=== PATIENT | male | born 1960 | race Caucasian/White ===

== ENCOUNTER 2016-11-18 14:26 | Inpatient (IN) | payer OTHER ==
--- NOTE | ~2016-11-18 | DS ---
Discharge Summary [place] [id number] [place]. [address] NAME: ASHU TOVAR JR : 62 STATUS : DIS IN PAT#: [id number] AGE: 56 ADM/REG DATE : 11/18/16 MR#: [id number] REPORT SERV DATE: 11/22/16 DICTATED BY: EFRAIN RANDHAWA DATE: 11/21/16 REPORT STATUS : Draft TRANSCRIBED BY: MODL DATE: 11/21/16 ADMISSION DATE: 11/18/2016 DISCHARGE DATE: 11/21/2016 PAIN SPECIALIST: Dr. Moran. Psychiatric followup with [facility]. FINAL DIAGNOSES: 1. Right lower lobe pneumonia, possible aspiration. 2. Chronic hypoxic respiratory failure. 3. Chronic obstructive pulmonary disease. 4. Coronary artery disease with history of myocardial infarction. 5. Hypertension. 6. Diabetes. 7. Chronic pain. 8. Polysubstance abuse. 9. Paranoid schizophrenia. 10.History of hepatitis C. 11.Tobacco abuse. 12.Status post hyponatremia. DIAGNOSTIC EXAM: Echocardiogram showing technically difficult study due to limited acoustic windows. Normal left ventricular size with low normal systolic function, EF of 50%. Mild anteroseptal hypokinesis. Mild diastolic dysfunction. Normal RV size and systolic function. Normal left atrial size. No obvious mobile echodensities and visualized cardiac valve. CAT scan of the chest and abdomen without contrast showing consolidation within the posterior right lower lobe likely representing pneumonia. Additional dependent atelectatic changes are seen in both lungs. Moderate upper lobe predominant emphysematous changes, progress since 03/17/2012, increased number of subcentimeter mediastinal and hilar lymph nodes likely reactive. Moderate coronary artery calcifications. No definite acute abnormality appreciated with the abdomen or pelvis. Nonobstructing bilateral nephrolithiasis. Minimally prominent prostate. CAT scan of the brain showing prominence of sulci over the frontal and temporal region, question significance; small amount of nonspecific deep white matter lucency in the left frontal region; nonspecific. HOSPITAL COURSE: Please refer to the H and P done by Dr. Snyder dated on 11/18/2016. Briefly, this is a 56-year-old male who comes in for fever and lethargy. The patient has a history of COPD on 2 L of oxygen all the time, CAD, diabetes, yet continues to smoke. He is on several pain medications and possibly on using other substances as well. The patient was having some vomiting two to three days prior to admission, diaphoretic, and Phenergan was not helping. It was also noted that the patient was recently started on Lyrica. EMS was then called and found the patient obtunded, which Narcan did not help. The patient then was brought to the emergency room and was found to have an elevated white count, lactate, and the patient was possibly diagnosed with sepsis and sent to the IMCU. Further workup revealed that the patient has KAYLYNN with a creatinine of 3.87. Imaging shows a right lower Discharge Summary [facility] [address] [place]. [address] NAME: ASHU TOVAR JR : 62 STATUS : DIS IN PAT#: [id number] AGE: 56 ADM/REG DATE : 11/18/16 MR#: [id number] REPORT SERV DATE: 11/22/16 DICTATED BY: EFRAIN RANDHAWA DATE: 11/21/16 REPORT STATUS : Draft TRANSCRIBED BY: GERONIMO DATE: 11/21/16 lobe pneumonia, and the patient was started on fluids and antibiotics. Nephro was consulted and they followed up with the labs and the patient improved. On discharge, creatinine 0.79. The patient's mental status also improved and was transferred out on the floor, and the patient was saturating at 95% on 2 L, which is his baseline. Meanwhile, the white count also improved from as high as 20.5 to 8.9. He was also found to have positive for benzo, amphetamines, cannabinoids, and opiates in his urine. We are not sure whether the patient started with a pneumonia and caused him to be obtunded with this or if the patient was on several medications that cause him to be obtunded causing him to have some nausea and vomiting and have a pneumonia afterwards, in which case, the patient was told not to continue the Lyrica, follow up with a pain specialist, and not to take any other substance not prescribed to him. He was also told not to smoke with his background of COPD and his use of oxygen. The patient remains afebrile with stable vital signs. He expresses wishes to go home, so we will be discharging him with the above diagnosis. He will be on Augmentin 875 mg twice a day for one more week and continue his home medications of atenolol 50 mg a day, Pepcid 40 mg at bedtime, Prozac 40 mg a day, Dilaudid 4 mg four times a day, Opana ER 20 mg twice a day, Levemir 15 units at bedtime, Prilosec 40 mg a day, Pravachol 20 mg at bedtime, Risperdal 3 mg a day, Spiriva one capsule inhaled a day, Thorazine 300 mg at bedtime, metformin 1000 mg twice a day. He will be off the Amaryl and Lyrica, Voltaren gel as needed, and Onglyza 5 mg a day. The patient will follow up with his PCP, Germania Roamn, in one week. Follow up with his pain specialist in [facility] as previously scheduled. This has been explained to the patient in front of the nurses. TIME SPENT: 40 minutes. FELI/GERONIMO Efrain Randhawa M.D. / [id number] CC: Kathy Colby M.D.
--- NOTE | ~2016-11-18 | HP ---
History And Physical [place] [id number] [facility] [place]. [address] NAME: ASHU TOVAR JR : 62 STATUS : ADM IN PAT#: [id number] AGE: 56 ADM/REG DATE : 11/18/16 MR#: [id number] REPORT SERV DATE: 11/18/16 DICTATED BY: EFRAIN SNYDER DATE: 11/18/16 REPORT STATUS : Draft TRANSCRIBED BY: MODL DATE: 11/18/16 DATE OF ADMISSION: 11/18/2016 IDENTIFYING DATA: A 56-year-old white male whose PCP is Dr. Germania Roman. Mental health care is through [facility], and he goes to some painter hand. CHIEF COMPLAINT: Fever, chills, and lethargy. HISTORY OF PRESENT ILLNESS: This history of present illness is obtained by discussion with the patient. I also was able to reach his by phone at [phone]. Also spoke with the ER physician, Dr. Malu Roca. I reviewed Stayzilla and Miso, spoke with the ER nurse, and reviewed his ER chart. The patient was hospitalized here 07/30/2016 through 08/06/2016 with COPD and community- acquired pneumonia. He was back the next day after falls and a fracture of the MTP. His by phone tells me that over the last two to three days he has been very diaphoretic, weak in the legs, throwing up almost constantly day and night. She gave him some Phenergan but that did not seem to help. She was not sure but she thought there might have been some red color in some of the emesis and possibly some black color in some of the emesis. She also thinks he may have had some dark stool. She was very eager to help, but on the phone, it was difficult to understand much of what she said, so I had to have her repeat a lot of it. She states she tried again to come to the emergency room, but he refused to come initially. Then, last night he was harder and harder to awaken. Finally, today, she just had him come to the emergency room. The paramedics told the ER staff that he was obtunded. They reportedly gave him Narcan and albuterol, but it did not seem to awaken him at all. The ER felt he had sepsis and asked us to admit him to the hospital. REVIEW OF SYSTEMS: Per the , he has had fever, but they did not check the temperature. She said he was very diaphoretic. He had some diarrhea last week. She states that he has a slow urinary stream, apparently had some falls yesterday. She states his weight has gone down from somewhere in the 200s to 165 pounds, but it is not clear over what time. He denies any dysuria, chest pain, or abdominal pain, and the rest of the questions I asked in my review of systems, he essentially did not give me any answer to. ALLERGIES: HE CLAIMS ALLERGIES TO TORADOL, IMITREX, AND CODEINE. PAST MEDICAL HISTORY: He has no history of stroke or chronic kidney disease. He does have a history of diabetes mellitus type 2. He also has COPD on oxygen at home and Spiriva. He has hypertension. He has had some type of hepatitis in the past. Previous notes indicate hepatitis C. The thinks it was hepatitis C. He has never had any treatment for it. He has also had peptic ulcer disease and reflux in the past. He has had problems with kidney stones and hematuria, was evaluated by Dr. Alcantara of Urology for that on 07/31/2016, and he was going to follow him up as an outpatient. He has chronic pain with History And Physical [address] [address] NAME: ASHU TOVAR : 62 STATUS : ADM IN [facility]#: [id number] AGE: 56 ADM/REG DATE : 11/18/16 MR#: [id number] REPORT SERV DATE: 11/18/16 DICTATED BY: EFRAIN SNYDER DATE: 11/18/16 REPORT STATUS : Draft TRANSCRIBED BY: MODPo DATE: 11/18/16 migraines, neck, and back pain, and he goes to Pain Management and is on Opana and Dilaudid. 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 His states he had a PTCA. She does not know any details. He has been out of custodial for about a year and a half, almost two years. She states he spent about total 23 years in custodial in the past. He has had chronic paranoid schizophrenia. HOME MEDICATIONS: Tenormin 50 mg daily, Thorazine 300 mg at bedtime, Voltaren 1% gel topical p.r.n., Pepcid 40 mg at bedtime, Prozac 40 mg daily, Amaryl 4 mg twice a day, Dilaudid 4 mg q.i.d. p.r.n. pain, Levemir 15 units at bedtime, metformin 1000 mg b.i.d., Prilosec 40 mg daily, Opana extended release 20 mg twice a day, Pravachol 20 mg at bedtime, Lyrica 150 mg daily that was supposedly just started on 11/15/2016, Risperdal 3 mg daily, Onglyza 5 mg daily, and Spiriva HandiHaler one dose inhaled daily. SURGERIES: All that the knows of is cataract surgery, but I did find where he had an ESWL, done by Dr. Lopez 01/14/2016. I did find a heart catheterization by Dr. Chow on 01/09/2012 showing normal coronary arteries, mild focal wall motion abnormality with an ejection fraction of 50%. Also found on echocardiogram 01/10/2012 with left atrial size of 2.3 cm, and left ventricular ejection fraction of 45-50%. SOCIAL HISTORY: He still smokes two packs of cigarettes per day. He used to drink six pack of beer per week. The states he does not drink any longer. He is . As described above, he spent a total of about 23 years in custodial, has been out this most recent time, almost two years according the . FAMILY HISTORY: Mother had a heart attack and pneumonia. Dad reportedly had lung cancer and treated with chemo and radiation. Dad later of a stroke reportedly. DIAGNOSTIC DATA: Chest x-ray done as a single portable film today reveals some increased interstitial marking in the bases, left and right, heart size normal. No bony abnormalities that I can appreciate at this time. CT scan of the brain, interpreted by teleradiography, is showing no acute abnormalities. EKG done today at 1502 hours interpreted by me at this time reveals normal sinus rhythm and a left bundle branch block, and it looks basically the same as 08/12/2016 per my interpretation. Arterial blood gas done on 28% oxygen: PH 7.31, pCO2 of 42, PO2 of 82, bicarbonate 20.9. Sodium 134, potassium 4.2, chloride 96, CO2 is 25, BUN 37, creatinine 3.87, and by comparison, his creatinine was 0.78 on 11/05/2016. His glucose is 135. His calcium is 9.6. His albumin is 3.3, globulin 4.7. The rest of the CMP at this time is normal. His B-natriuretic peptide is 21.1. His procalcitonin is 0.37. Lactic acid is 6.5, and it was drawn at 1440 hours today. His white count is 20.5, hemoglobin is 13.7, MCV is microcytic at 73.1, and platelets 359,000. His protime is 12.8, INR 1.0, PTT is 33.7. Urinalysis today that is obtained from a catheterized specimen is cloudy. Glucose and protein are both greater than 500, large amount of blood, greater than 182 red cells, 11 white blood cells. PHYSICAL EXAMINATION: VITAL SIGNS: Temperature 98, pulse 80, respirations 20, blood pressure 120/70, and O2 saturation is currently 94% on 3 liters. History And Physical [address] [address] NAME: ASHU TOVAR JR : 62 STATUS : ADM IN [facility]#: [id number] AGE: 56 ADM/REG DATE : 11/18/16 MR#: [id number] REPORT SERV DATE: 11/18/16 DICTATED BY: EFRAIN SNYDER DATE: 11/18/16 REPORT STATUS : Draft TRANSCRIBED BY: GERONIMO DATE: 11/18/16 GENERAL: A well-developed male who appears lethargic, but in no acute distress. HEENT: Head is atraumatic. Pupils are equal, round, and reactive to light. Extraocular motions are intact. No scleral icterus noted. Ear canals and TMs unremarkable. No inflammatory changes noted on the ears externally. Hearing is grossly normal bilaterally. Nose noninflamed externally. Septum midline. Nares patent. Mouth is dry, good gag. No redness of the throat, gums, or lips. NECK: Supple. No lymph node or thyroid enlargement. The carotids have good pulses. No bruits. Jugular veins are not distended. LUNGS: Crackles in the left lung base. Clear otherwise. Normal respiratory effort. HEART: Regular rate and rhythm without murmur, gallop, click, or rub. ABDOMEN: Bowel sounds positive. Soft, nondistended, nontender. No masses. No organomegaly. EXTREMITIES: Warm, good pulses. No clubbing, no cyanosis, no edema. No actively inflamed skin or joints. NEUROLOGIC: He is lethargic. He awakens to tactile and verbal stimulation. He is able to tell me his name. He states he is at a hospital. He follows simple commands. His motor strength appears to be 2/5 in all four extremities. No Babinski or clonus noted. Cranial nerves 2 through 12 grossly normal. He has a Haddad catheter in place, placed by the ER staff. ASSESSMENT: 1. Acute kidney injury. This is probably due to volume depletion for several days of vomiting, but also, I suspect he has sepsis that may be aggravating this. 2. Sepsis with a high white blood count, high lactate lethargy, and acute kidney injury. I suspect this may be due to aspiration pneumonitis. 3. Several days of nausea and vomiting with reported diarrhea, could be a gastroenteritis. 4. Possible gastrointestinal bleed because the stated she thought there was some red or black color in some of his emesis and some of his stools. Currently, his hemoglobin is higher than when he left here on 08/07/2016, but he is volume depleted as well. 5. Metabolic acidosis with concomitant respiratory acidosis. 6. Severe proteinuria. 7. History of congestive heart failure per his . 8. Microcytic indices. 9. Report of COPD, on home oxygen 2 L. 10.Diabetes mellitus type 2. 11.History of hypertension. 12.History of hepatitis C, untreated for years. 13.History of previous heart attack 10 years ago in custodial, treated with PTCA. 14.Chronic paranoid schizophrenia. 15.History of kidney stones. 16.Chronic pain, on Dilaudid and Opana. PLAN: 1. Admit to the [facility]. 2. We will get a renal ultrasound or actually may just go and get a CT scan of abdomen and pelvis. We are going to give him lactated Ringer's intravenously. I am going to hold his Levemir and metformin. We are going to hold his Lyrica and continue with Zosyn History And Physical [address] [place]. [address] NAME: ASHU TOVAR JR : 62 STATUS : ADM IN PAT#: [id number] AGE: 56 ADM/REG DATE : 11/18/16 MR#: [id number] REPORT SERV DATE: 11/18/16 DICTATED BY: EFRAIN SNYDER DATE: 11/18/16 REPORT STATUS : Draft TRANSCRIBED BY: GERONIMO DATE: 11/18/16 that was already started in the emergency room. We will check HIV and hepatitis C and hepatitis B. We will check for urine protein-creatinine ratio. We will check an echocardiogram. His had been updated by phone at this time. RSG/GERONIMO Efrain Snyder M.D. / [id number] CC: Kathy Vega M.D.
--- NOTE | ~2016-11-18 | CN ---
Consultation Report [facility] [address] [place]. [address] NAME: ASHU TOVAR JR : 62 STATUS : ADM IN [facility]#: [id number] AGE: 56 ADM/REG DATE : 11/18/16 MR#: [id number] REPORT SERV DATE: 11/19/16 DICTATED BY: FRANCESCA PETERSON DATE: 11/19/16 REPORT STATUS : Draft TRANSCRIBED BY: MODPo DATE: 11/19/16 NEPHROLOGY CONSULTATION DATE OF CONSULTATION: 11/19/2016 INDICATION FOR CONSULTATION: Acute kidney injury. HISTORY OF PRESENT ILLNESS: The patient is a 56-year-old male who is seen for acute kidney injury and acidosis following admission for lethargy, fever, and chills. He apparently was at home and was unresponsive and EMS was called. His creatinine was 0.78 on 11/05/2016, rising to 3.87 on 11/18/2016 and has fallen to 3.14 on 11/19/2016. Home medications included metformin and topical Voltaren. He did relate protracted nausea and vomiting. His reported some bowel movements were dark in color and the patient reported hematemesis. He denied any dizziness prior to admission. PAST MEDICAL HISTORY: Paranoid schizophrenia; chronic pain syndrome with polysubstance abuse; gastroesophageal reflux disease; peptic ulcer disease; history of CHF; hypertension; diabetes; nephrolithiasis; COPD, on home O2; coronary artery disease with remote PCI; remote MT; and hepatitis C. SOCIAL HISTORY: The patient is . He is disabled. He is followed through [facility] and goes to a dial painter. He has a 35-year- pack smoking history and smokes one pack of cigarettes per day, history of beer consumption as well and drug screen is positive on this admission for amphetamines, benzodiazepines, cannabis and opiates. He is and has two sons, aged 24 and 20. ALLERGIES: TORADOL, IMITREX, AND CODEINE. HOME MEDICATIONS: Thorazine, Tenormin, Voltaren gel, Pepcid, Prozac, Amaryl, Dilaudid, Levemir, insulin, metformin, Prilosec, Opana, Pravachol, Lyrica, Risperdal, Onglyza, and Spiriva HandiHaler. PAST SURGICAL HISTORY: Cataract surgery, lithotripsy for nephrolithiasis, and cardiac cath. FAMILY HISTORY: Mother had heart attack and pneumonia. Dad had lung cancer, treated with chemotherapy and radiation, and apparently of stroke. No history of end-stage renal disease. REVIEW OF SYSTEMS: HEENT: No change in visual acuity. No epistaxis. No otic infection. No pharyngitis. PULMONARY: Notes cough. No hemoptysis. No purulent sputum. CARDIAC: Denies chest pain. No lower extremity edema. No syncope. GI: Protracted nausea and vomiting. He denies recent diarrhea. reported dark stool. He reports hematemesis. Consultation Report [place] [id number] [place]. [address] NAME: ASHU TOVAR JR : 62 STATUS : ADM IN [facility]#: [id number] AGE: 56 ADM/REG DATE : 11/18/16 MR#: [id number] REPORT SERV DATE: 11/19/16 DICTATED BY: FRANCESCA PETERSON DATE: 11/19/16 REPORT STATUS : Draft TRANSCRIBED BY: GERONIMO DATE: 11/19/16 : No gross hematuria, dysuria, or pyuria. MUSCULOSKELETAL: Chronic back pain. INTEGUMENT: No rash. No skin lesions. NEUROLOGIC: No lateralizing weakness. No seizure activity. The remainder of the 12-point review of systems is negative. PHYSICAL EXAMINATION: GENERAL: White male, pleasant, alert. VITAL SIGNS: Blood pressure lowest was 88/55, currently blood pressure is 123/72, temp is 98.1 with T-max of 99.2, respiratory rate is 14, and pulse 66. HEENT: Eyes, no scleral icterus. Pupils are equal and reactive to light. Extraocular movement intact. Nares patent. No lesions. Mouth, mucous membranes moist. No throat injection. NECK: No thyromegaly, masses, bruits. CHEST/LUNGS: Bilateral crackles. No wheezes/rhonchi. No dullness. CARDIAC: Regular rate and rhythm. No murmur, gallop, or rub. ABDOMEN: Supple. Normoactive bowel sounds. Nontender. No masses. No hepatosplenomegaly. No bruits. /RECTAL: Not performed. EXTREMITIES: No edema. DERMIS: No rash. No skin lesions. He does have multiple tattoos. NEUROLOGIC: Cranial nerves intact. No lateralizing weakness. MUSCULOSKELETAL: No deformity. IMPRESSION: 1. Acute kidney injury, possible sepsis with transient hypotension and prerenal state. No significant nephrotoxic exposure. 2. Metabolic acidosis with respiratory compensation, possibly related to acute kidney injury, metformin use infection with elevated lactic acid of 6.5. 3. Hepatitis C. 4. Remote myocardial infarction. 5. Coronary artery disease with history of percutaneous coronary intervention. 6. Chronic obstructive pulmonary disease, on home O2. 7. Possible gastrointestinal bleed. 8. Chronic paranoid schizophrenia. 9. Nephrolithiasis. 10.Type 2 diabetes mellitus, on insulin therapy. 11.Hypertension. 12.Chronic pain. 13.Possible aspiration pneumonia. 14.History of congestive heart failure. 15.Gastroesophageal reflux disease. 16.Peptic ulcer disease. 17.Polysubstance. Consultation Report [address] [place]. [address] NAME: ASHU TOVAR JR : 62 STATUS : ADM IN [facility]#: [id number] AGE: 56 ADM/REG DATE : 11/18/16 MR#: [id number] REPORT SERV DATE: 11/19/16 DICTATED BY: FRANCESCA PETERSON DATE: 11/19/16 REPORT STATUS : Draft TRANSCRIBED BY: GERONIMO DATE: 11/19/16 PLAN: 1. Concur with IV fluids. 2. Concur with cultures and antibiotics. 3. Concur with medication adjustments. 4. Labs. 5. Await report of CT scan of chest, abdomen, and pelvis. CG/MODL Francesca Peterson M.D. / [id number] CC: Kathy Vega M.D.
[~2016-11-18 14:26] MED LIST: *UNABLE1; ASA5GR PO; ATEN25 PO; ATEN50 PO; BLOOD PRESSURE MED; CEFT5 PO; CHLORPROMAZ200 MG PO; CPZ100 PO; FORTAMET1000 MG PO; GLUCOPHXR PO; KLONO2 PO; LEVEMFLXPN SC; LEVEMIR SC; LORTAB10 PO; NEUR600; NEUR600 PO; ONGLYZA5 MG PO; PCET PO; PERCOCET1 TA4 PO; PRAVAC PO; PRILOSEC40 MG PO; PRINZIDE1 TA1 PO; PROVHFA INH; PROZAC40 MG PO; RISP3 PO; SOMATAB PO; SPIRONOLACTONE; VERAPAMIL; VIST50 PO; ZESTORETIC PO
[2016-11-18] MEDS ORDERED: DIL4TAB PO (15:36)
[2016-11-18] MEDS ORDERED: OPANA ER20 MG PO (15:36)
[2016-11-18] MEDS ORDERED: SPIRIVA INH (15:37)
[2016-11-18] MEDS ORDERED: LYRICA150 MG PO (15:37)
[2016-11-18] MEDS ORDERED: CPZ100 PO (15:37)
[2016-11-18] MEDS ORDERED: PRAVAC PO (15:37)
[2016-11-18] MEDS ORDERED: PRILOSEC40 MG PO (15:38)
[2016-11-18] MEDS ORDERED: ATEN50 PO (15:38)
[2016-11-18] MEDS ORDERED: PEPCID40 MG PO (15:38)
[2016-11-18] MEDS ORDERED: ONGLYZA5 MG PO (15:39)
[2016-11-18] MEDS ORDERED: RISP3 PO (15:39)
[2016-11-18] MEDS ORDERED: DICLOFENAC SOD T (15:39)
[2016-11-18] MEDS ORDERED: GLUCOPHAGE1000 MG PO (15:39)
[2016-11-18] MEDS ORDERED: AMARYL4 PO (15:39)
[2016-11-18 15:40] LABS: BASOPHILS 0.1 %; BASOPHILS ABSOLUTE 0.02 10/3/uL (0.0-0.16); EOSINOPHILS 0.1 %; EOSINOPHILS ABSOLUTE 0.03 10/3/uL (0.0-0.53); ER CBC TAT 0 Hrs 12 Mins; HEMATOCRIT 43.2 % (40.0-51.0); HEMOGLOBIN 13.7 g/dL (13.6-17.8); IMMATURE GRANULOCYTES 0.6 %; IMMATURE GRANULOCYTES ABSOLUTE 0.13 10/3/uL (0.0-0.11); LYMPHOCYTES 14.9 %; LYMPHOCYTES ABSOLUTE 3.04 10/3/uL (0.67-4.30); MEAN CORPUS HGB CONC 31.7 g/dL (32.0-36.0); MEAN CORPUSCULAR HEMOGLOB 23.2 pg (26.0-34.0); MEAN CORPUSCULAR VOLUME 73.1 fL (80-100); MONOCYTES 7.4 %; MONOCYTES ABSOLUTE 1.51 10/3/uL (0.21-1.20); NEUTROPHILS 76.9 %; NEUTROPHILS ABSOLUTE 15.74 10/3/uL (2.02-8.40); RBC DISTRIBUTION WIDTH 17.1 % (12.0-16.0); RED CELL COUNT 5.91 10/6/uL (4.7-6.1); WHITE BLOOD CELLS 20.5 10/3/uL (4.5-10.5)
[2016-11-18] MEDS ORDERED: LEVEMIR SC (15:40)
[2016-11-18] MEDS ORDERED: PROZAC40 MG PO (15:40)
[2016-11-18 15:41] LABS: MANUAL DIFF NO %; PLATELET COUNT 359 10/3/uL (150-400)
[2016-11-18 15:43] LABS: PARTIAL THROMBO TIME 33.7 SEC (22.5-37.2); PROTIME (NOT ORD) 12.8 SEC (12.0-14.5)
[2016-11-18 15:50] LABS: A/G RATIO 0.7 (0.7-1.9); ALBUMIN 3.3 G/DL (3.5-5.0); ALKALINE PHOSPHATASE 87 U/L (45-117); CALCIUM, SERUM 9.6 MG/DL (8.5-10.4); CHLORIDE, SERUM 96 MMOL/L (96-112); CO2 (CARBON DIOXIDE) 25 MMOL/L (24-34); POTASSIUM, SERUM 4.2 MMOL/L (3.5-5.3); SGOT(AST) 178 U/L (5-40); SGPT(ALT) 25 U/L (5-65); SODIUM, SERUM 134 MMOL/L (135-148); TOTAL BILIRUBIN 0.2 MG/DL (0-1.2)
[2016-11-18 15:51] LABS: BUN (BLOOD UREA NITROGEN) 37 MG/DL (6-23); CREATININE 3.87 MG/DL (0.70-1.30); GFR AFRICAN AMERICAN 19 ML/MIN (>=60); GFR NON AFRICAN AMERICAN 16 ML/MIN (>=60); GLOBULIN 4.7 G/DL (2.5-4.1); GLUCOSE, SERUM 135 MG/DL (60-99); LACTATE 6.5 MMOL/L (0.3-2.4)
[2016-11-18 16:13] LABS: PROCALCITONIN 0.37 ng/mL (<0.5)
[2016-11-18 17:23] LABS: ASCORBIC ACID (UR NOT ORDER) NEG (NEG); BILIRUBIN, URINE NEGATIVE (NEG); ER URINALYSIS TAT 0 Hrs 11 Mins; KETONE, URINE 20 MG/DL (NEG); LEUKOCYTE ESTERASE(NOT OR NEG (NEG); NITRITE (URINE) NEG (NEG); WBC (NOT ORDERED) (RFLEX) 11 (0-5)
[2016-11-18 17:42] LABS: ALLENS TEST Pos; BE (BASE EXCESS) -5.1 MEQ/L (0 +/- 2.5); CARBOXYHEMOGLOBIN 3.1 % (0-3); DEVICE NC; HCO3 (ACTUAL BICARBONATE) 20.9 MEQ/L (23-27); INSTRUMENT SERIAL # 8087; METHEMOGLOBIN 0.1 % (0-3); O2 CONTENT 18.1 VOL% (18-24); OPERATOR ID 14335; PCO2 (CO2 TENSION) 42 MMHG (35-45); PO2 (O2 TENSION) 82 MMHG (79-93); SAMPLE Arterial; pH 7.31 (7.37-7.43)
[2016-11-18 17:58] LABS: AMPHETAMINES (NOT ORD) POS (NEG); BENZODIAZEPINES (NOT ORD) POS (NEG); CANNABINOIDS (THC) POS (NEG); COCAINE (NOT ORDERED) NEG (NEG); PHENCYCLIDINE(PCP) NEG (NEG)
[2016-11-18 17:59] LABS: BARBITURATES (NOT ORDERED NEG (NEG); OPIATES POS (NEG); TRICYCLICS NEG (NEG)
[2016-11-18 21:47] LABS: LACTATE 4.4 MMOL/L (0.3-2.4)
[2016-11-18 21:54] LABS: TROPONIN I 0.04 NG/ML (<0.05)
[2016-11-18 21:56] LABS: ULTRASENSITIVE TSH 2.18 MCIU/ML (0.358-3.740)
[2016-11-18 21:58] LABS: ASCORBIC ACID (UR NOT ORDER) NEG (NEG); BILIRUBIN, URINE NEGATIVE (NEG); KETONE, URINE TRACE MG/DL (NEG); LEUKOCYTE ESTERASE(NOT OR NEG (NEG); WBC (NOT ORDERED) (RFLEX) 8 (0-5)
[2016-11-18 22:10] LABS: AMPHETAMINES (NOT ORD) POS (NEG); BARBITURATES (NOT ORDERED NEG (NEG); BENZODIAZEPINES (NOT ORD) POS (NEG); CANNABINOIDS (THC) POS (NEG); COCAINE (NOT ORDERED) NEG (NEG); OPIATES POS (NEG); PHENCYCLIDINE(PCP) NEG (NEG); TRICYCLICS NEG (NEG)
[2016-11-19 02:01] LABS: BASOPHILS 0.1 %; BASOPHILS ABSOLUTE 0.02 10/3/uL (0.0-0.16); EOSINOPHILS 0.4 %; EOSINOPHILS ABSOLUTE 0.08 10/3/uL (0.0-0.53); HEMOGLOBIN 11.4 g/dL (13.6-17.8); IMMATURE GRANULOCYTES 0.3 %; IMMATURE GRANULOCYTES ABSOLUTE 0.05 10/3/uL (0.0-0.11); LYMPHOCYTES 16.5 %; LYMPHOCYTES ABSOLUTE 3.26 10/3/uL (0.67-4.30); MEAN CORPUS HGB CONC 32.5 g/dL (32.0-36.0); MEAN CORPUSCULAR HEMOGLOB 23.3 pg (26.0-34.0); MEAN CORPUSCULAR VOLUME 71.6 fL (80-100); MEAN PLATELET VOLUME 8.6 fL (9.2-13.0); MONOCYTES 8.7 %; MONOCYTES ABSOLUTE 1.71 10/3/uL (0.21-1.20); PLATELET COUNT 263 10/3/uL (150-400); RBC DISTRIBUTION WIDTH 16.8 % (12.0-16.0); WHITE BLOOD CELLS 19.7 10/3/uL (4.5-10.5)
[2016-11-19 02:03] LABS: HEMATOCRIT 35.1 % (40.0-51.0); MANUAL DIFF NO %
[2016-11-19 02:16] LABS: A/G RATIO 0.7 (0.7-1.9); ALBUMIN 2.6 G/DL (3.5-5.0); ALKALINE PHOSPHATASE 69 U/L (45-117); BUN (BLOOD UREA NITROGEN) 39 MG/DL (6-23); CALCIUM, SERUM 8.5 MG/DL (8.5-10.4); CHLORIDE, SERUM 101 MMOL/L (96-112); CO2 (CARBON DIOXIDE) 25 MMOL/L (24-34); CREATININE 3.14 MG/DL (0.70-1.30); GFR AFRICAN AMERICAN 25 ML/MIN (>=60); GFR NON AFRICAN AMERICAN 21 ML/MIN (>=60); GLUCOSE, SERUM 120 MG/DL (60-99); POTASSIUM, SERUM 3.7 MMOL/L (3.5-5.3); SGOT(AST) 166 U/L (5-40); SGPT(ALT) 25 U/L (5-65); SODIUM, SERUM 138 MMOL/L (135-148); TOTAL BILIRUBIN 0.6 MG/DL (0-1.2); TOTAL PROTEIN 6.6 G/DL (6.0-8.5)
[2016-11-19 02:19] LABS: RBC MORPHOLOGY ABN (NORMAL)
[2016-11-19 04:07] LABS: INFLUENZA A SCREEN NEGATIVE (NEGATIVE); INFLUENZA B SCREEN NEGATIVE (NEGATIVE)
[2016-11-19 11:01] LABS: HEPATITIS B SURFACE ANTIGEN NON-REACTIVE (NON-REACT)
[2016-11-19 11:12] LABS: HEPATITIS B CORE AB IGM NON-REACTIVE (NON-REAC)
[2016-11-19 11:13] LABS: HIV COMBO NON-REACTIVE (NON REAC)
[2016-11-19 11:14] LABS: HEP A ANTIBODY IGM NON-REACTIVE (NON-REACT)
[2016-11-19 12:17] LABS: HEPATITIS C ANTIBODY REACTIVE (NON-REACT)
[2016-11-19 19:13] LABS: CREATININE (RANDOM URINE) 53.8 MG/DL; CREATININE, URINE 53.8 MG/DL; MICROALBUMIN, RANDOM URINE 2.4 MG/DL
[2016-11-20 05:43] LABS: CALCIUM, SERUM 9.2 MG/DL (8.5-10.4); CHLORIDE, SERUM 104 MMOL/L (96-112); PHOSPHORUS, SERUM 2.2 MG/DL (2.5-4.5); POTASSIUM, SERUM 3.8 MMOL/L (3.5-5.3); SODIUM, SERUM 142 MMOL/L (135-148)
[2016-11-20 05:47] LABS: BUN (BLOOD UREA NITROGEN) 17 MG/DL (6-23); CO2 (CARBON DIOXIDE) 31 MMOL/L (24-34); CREATININE 1.08 MG/DL (0.70-1.30); GFR AFRICAN AMERICAN 89 ML/MIN (>=60); GFR NON AFRICAN AMERICAN 77 ML/MIN (>=60); GLUCOSE, SERUM 151 MG/DL (60-99)
[2016-11-20 07:05] LABS: PROCALCITONIN <0.05 ng/mL (<0.5)
[2016-11-20 08:21] LABS: BASOPHILS 0.2 %; BASOPHILS ABSOLUTE 0.02 10/3/uL (0.0-0.16); EOSINOPHILS 1.6 %; EOSINOPHILS ABSOLUTE 0.16 10/3/uL (0.0-0.53); HEMATOCRIT 36.2 % (40.0-51.0); HEMOGLOBIN 11.7 g/dL (13.6-17.8); IMMATURE GRANULOCYTES 0.4 %; IMMATURE GRANULOCYTES ABSOLUTE 0.04 10/3/uL (0.0-0.11); LYMPHOCYTES 31.2 %; LYMPHOCYTES ABSOLUTE 3.13 10/3/uL (0.67-4.30); MEAN CORPUS HGB CONC 32.3 g/dL (32.0-36.0); MEAN CORPUSCULAR HEMOGLOB 23.4 pg (26.0-34.0); MEAN CORPUSCULAR VOLUME 72.4 fL (80-100); MEAN PLATELET VOLUME 8.9 fL (9.2-13.0); MONOCYTES 10.7 %; MONOCYTES ABSOLUTE 1.07 10/3/uL (0.21-1.20); NEUTROPHILS 55.9 %; NEUTROPHILS ABSOLUTE 5.62 10/3/uL (2.02-8.40); PLATELET COUNT 270 10/3/uL (150-400); RBC DISTRIBUTION WIDTH 16.7 % (12.0-16.0)
[2016-11-20 08:23] LABS: MANUAL DIFF NO %
[2016-11-21 05:24] LABS: BASOPHILS 0.2 %; BASOPHILS ABSOLUTE 0.02 10/3/uL (0.0-0.16); EOSINOPHILS ABSOLUTE 0.36 10/3/uL (0.0-0.53); HEMATOCRIT 35.5 % (40.0-51.0); HEMOGLOBIN 11.3 g/dL (13.6-17.8); IMMATURE GRANULOCYTES 0.1 %; IMMATURE GRANULOCYTES ABSOLUTE 0.01 10/3/uL (0.0-0.11); LYMPHOCYTES ABSOLUTE 3.48 10/3/uL (0.67-4.30); MEAN CORPUS HGB CONC 31.8 g/dL (32.0-36.0); MEAN CORPUSCULAR VOLUME 72.3 fL (80-100); MONOCYTES 7.1 %; MONOCYTES ABSOLUTE 0.63 10/3/uL (0.21-1.20); NEUTROPHILS 49.6 %; NEUTROPHILS ABSOLUTE 4.43 10/3/uL (2.02-8.40); PLATELET COUNT 275 10/3/uL (150-400); RBC DISTRIBUTION WIDTH 16.5 % (12.0-16.0); RED CELL COUNT 4.91 10/6/uL (4.7-6.1); WHITE BLOOD CELLS 8.9 10/3/uL (4.5-10.5)
[2016-11-21 05:27] LABS: MANUAL DIFF NO %
[2016-11-21 05:58] LABS: ALBUMIN 2.7 G/DL (3.5-5.0); CALCIUM, SERUM 9.6 MG/DL (8.5-10.4); CHLORIDE, SERUM 104 MMOL/L (96-112); CO2 (CARBON DIOXIDE) 27 MMOL/L (24-34); CREATININE 0.79 MG/DL (0.70-1.30); GFR AFRICAN AMERICAN 117 ML/MIN (>=60); GFR NON AFRICAN AMERICAN 101 ML/MIN (>=60); GLUCOSE, SERUM 166 MG/DL (60-99); PHOSPHORUS, SERUM 1.6 MG/DL (2.5-4.5); SODIUM, SERUM 139 MMOL/L (135-148)
[2016-11-21 05:59] LABS: BUN (BLOOD UREA NITROGEN) 10 MG/DL (6-23)
[2016-11-21] MEDS ORDERED: AUG875 (14:16)
[2016-11-21] MEDS ORDERED: AUG875 PO (14:17)
[2017-02-04] MEDS ORDERED: NEUR600 PO (00:59)
[2017-02-04] MEDS ORDERED: PERCOCET 7.5/321 TAB PO (09:28)
[2017-02-04] MEDS ORDERED: CIP5 PO (09:28)
== END 2016-11-21 15:50 | disposition home or self-care (01) | DRG 871 ==
LOC: ER 14:26 → IMCU 18:33 → 2SO 11-20 23:22
PROVIDERS: Internal Medicine; Internal Medicine Nephrology; Specialist
DX: A41.9 Sepsis, unspecified organism (principal); J69.0 Pneumonitis due to inhalation of food and vomit; E87.2 Acidosis; N17.9 Acute kidney failure, unspecified; J96.11 Chronic respiratory failure with hypoxia; F20.0 Paranoid schizophrenia; I50.32 Chronic diastolic (congestive) heart failure; Z99.81 Dependence on supplemental oxygen; B19.20 Unspecified viral hepatitis C without hepatic coma; I25.10 Atherosclerotic heart disease of native coronary artery without angina pectoris; N20.0 Calculus of kidney; E11.9 Type 2 diabetes mellitus without complications; K21.9 Gastro-esophageal reflux disease without esophagitis; G89.4 Chronic pain syndrome; K27.9 Peptic ulcer, site unspecified, unspecified as acute or chronic, without hemorrhage or perforation; F19.10 Other psychoactive substance abuse, uncomplicated; F17.210 Nicotine dependence, cigarettes, uncomplicated; I44.7 Left bundle-branch block, unspecified; J44.9 Chronic obstructive pulmonary disease, unspecified; I25.2 Old myocardial infarction; Z95.5 Presence of coronary angioplasty implant and graft; Z82.49 Family history of ischemic heart disease and other diseases of the circulatory system; Z82.3 Family history of stroke; Z80.1 Family history of malignant neoplasm of trachea, bronchus and lung; Z87.442 Personal history of urinary calculi; Z88.5 Allergy status to narcotic agent; Z88.8 Allergy status to other drugs, medicaments and biological substances
CPT/HCPCS: 36600; 70450; 71010; 71250; 74176; 80048; 80053; 80069; 80074; 80305; 81001; 82009; 82043; 82570; 82728; 82805; 82962; 83036; 83540; 83550; 83605; 83735; 83880; 84100; 84145; 84156; 84300; 84443; 84484; 85025; 85610; 85730; 87040; 87389; 87449; 87641; 87804; 94640; 96365; 99291; A9270-GY; C8929; C9113; J2543; J3475; Q9957